=== PATIENT | female | born 1965 | race Hispanic/Latino ===

== ENCOUNTER 2019-09-27 11:00 | Emergency (ER) | payer SELFPAY ==
[~2019-09-27] VITALS: Ht 152.4 cm; Wt 72.6 kg
[2019-09-27] MEDS ORDERED: ASPIR 8181 MG PO (11:23)
[2019-09-27] MEDS ORDERED: COZAAR100 MG PO (11:23)
[2019-09-27] MEDS ORDERED: SIMVASTATIN20 MG PO (11:23)
[2019-09-27] MEDS ORDERED: GLUCOPHAGE850 MG PO (11:24)
[2019-09-27] MEDS ORDERED: NORCO 5-325 TA1 EACH PO (13:59)
--- NOTE | 2019-09-28 11:39 | EKG ---
[facility] [address] [place], [place] [address] Signed Normal sinus rhythm Normal ECG Confirmed by NORI CADET MD ([id number]) on 09/28/2019 11:39:43 AM Electronically Signed By: NORI CADET MD 09/28/19 1139 PATIENT NAME: ANDERSON MEDEL Electrocardiogram DATE OF : 63 PHYSICIAN: NORI CADET MD REPORT #: [id number] REPORT IS CONFIDENTIAL AND NOT TO BE RELEASED WITHOUT AUTHORIZATION
== END 2019-09-27 14:14 | disposition home or self-care (01) ==
LOC: ED 11:00
DX: M54.6 Pain in thoracic spine (principal); E11.9 Type 2 diabetes mellitus without complications; I10 Essential (primary) hypertension; E78.00 Pure hypercholesterolemia, unspecified; Z79.899 Other long term (current) drug therapy; Z79.84 Long term (current) use of oral hypoglycemic drugs; Z79.82 Long term (current) use of aspirin
CPT/HCPCS: 71046; 80053; 81001; 84484; 85025; 85379; 93005; 93010; 96374; 99284-25; J1885

== ENCOUNTER 2022-06-02 17:47 | Emergency (ER) | payer OTHER ==
[~2022-06-02] VITALS: Ht 152.4 cm; Wt 72.6 kg
[~2022-06-02 17:47] MED LIST: ASPIR 8181 MG PO; COZAAR100 MG PO; GLUCOPHAGE850 MG PO; NORCO 5-325 TA1 EACH PO; SIMVASTATIN20 MG PO
[2022-06-02] MEDS ORDERED: HYDROCHLOROTHIA50 MG PO (18:02)
[2022-06-02] MEDS ORDERED: DICLOFENAC SOD100 GM TOP (19:30)
== END 2022-06-02 19:50 | disposition home or self-care (01) ==
LOC: ED 17:47
DX: S83.92XA Sprain of unspecified site of left knee, initial encounter (principal); W10.9XXA Fall (on) (from) unspecified stairs and steps, initial encounter; E11.9 Type 2 diabetes mellitus without complications; I10 Essential (primary) hypertension; E78.00 Pure hypercholesterolemia, unspecified; Z79.899 Other long term (current) drug therapy; Z79.82 Long term (current) use of aspirin; Z79.84 Long term (current) use of oral hypoglycemic drugs
CPT/HCPCS: 73560; 99283-25